=== PATIENT | male | born 2000 | race Two or more races ===

== ENCOUNTER 2022-04-28 14:30 | Emergency (ER) | payer MEDICAID, OTHER ==
[~2022-04-28] VITALS: Ht 180.3 cm; Wt 100.0 kg
[2022-04-28 14:57] VITALS: BP 135/66
[2022-04-28] MEDS ORDERED: PROM1SOL4 PO (17:04)
[2022-04-28] MEDS ORDERED: AZIT500T66 PO (17:04)
== END 2022-04-28 17:13 | disposition home or self-care (01) ==
LOC: ER 14:37
DX: J20.9 Acute bronchitis, unspecified (principal)
CPT/HCPCS: 71045

== ENCOUNTER 2022-08-18 07:03 | Emergency (ER) | payer MEDICAID ==
[~2022-08-18] VITALS: Ht 177.8 cm; Wt 105.4 kg
[~2022-08-18 07:03] MED LIST: AZIT500T66 PO; PROM1SOL4 PO
[2022-08-18 07:50] VITALS: BP 125/67
[2022-08-18] MEDS ORDERED: cefTRIAXone SOD 1,000 MG VL IM ONE (08:15)
[2022-08-18] MEDS ORDERED: IBUPROFEN 800 MG TAB PO ONE (08:15)
[2022-08-18] MEDS ORDERED: CEPH500C PO (08:24)
[2022-08-18] MEDS ORDERED: IBUP800T27 PO (08:24)
[2022-08-18] MEDS ORDERED: BACDST PO (08:24)
== END 2022-08-18 08:34 | disposition home or self-care (01) ==
LOC: ER 07:03
DX: S70.362A Insect bite (nonvenomous), left thigh, initial encounter (principal); W57.XXXA Bitten or stung by nonvenomous insect and other nonvenomous arthropods, initial encounter; Y93.89 Activity, other specified; Y92.89 Other specified places as the place of occurrence of the external cause; Y99.8 Other external cause status
CPT/HCPCS: 96372; 99283; J0696

== ENCOUNTER 2023-11-28 07:48 | Emergency (ER) | payer MEDICAID ==
[~2023-11-28] VITALS: Ht 180.3 cm; Wt 92.2 kg
[~2023-11-28 07:48] MED LIST changes: +BACDST PO; +CEPH500C PO; +IBUP-1456 PO
[2023-11-28 08:11] VITALS: BP 160/88; PULSE 87; RESP 16; TEMP 97.9; O2SAT 99
[2023-11-28] MEDS ORDERED: FLUO0.054 TOP (08:30)
== END 2023-11-28 08:36 | disposition home or self-care (01) ==
LOC: ER 07:48
DX: L20.9 Atopic dermatitis, unspecified (principal); Z79.1 Long term (current) use of non-steroidal anti-inflammatories (NSAID); Z79.52 Long term (current) use of systemic steroids; Z79.899 Other long term (current) drug therapy

== ENCOUNTER 2025-01-11 17:27 | Emergency (ER) | payer MEDICAID ==
[~2025-01-11] VITALS: Ht 180.3 cm; Wt 92.6 kg
[~2025-01-11 17:27] MED LIST changes: +FLUO0.054 TOP
[2025-01-11 17:28] VITALS: BP 124/67; PULSE 96; RESP 15; TEMP 98.1; O2SAT 99
[2025-01-11 20:37] LABS: COVID19 ANTIGEN SOFIA FIA NEGATIVE (NEGATIVE)
[2025-01-11] MEDS ORDERED: METH4PAK PO (21:26)
[2025-01-11] MEDS ORDERED: AZIT-43 PO (21:26)
--- NOTE | 2025-01-11 21:27 | ED.PDOC ---
Eye-HPI HPI Comments C/O BODY ACHES, SORETHROAT, NAUSEA, FEVER AND RIGHT EYE REDNESS X 3 DAYS C/O POOR APPETITE Chief Complaint: Flu like Time Seen by MD: 17:59 Primary Care Provider: NONE Reviewed Notes: Nurses Notes, Medications, Allergies Allergies: Coded Allergies: NO KNOWN ALLERGIES (Unverified , 04/28/22) Home Meds Active Scripts Fluocinonide (Fluocinonide) 0.05 % Oin, 1 APPLIC TOP BID for 7 Days, #60 GRAMS 1 Refill Prov:UNIQUE FALLON [employer] 11/28/23 Ibuprofen (Ibuprofen) 800 Mg Tab, 1 TAB PO TID, #30 TAB Prov:SAAD ALEXANDER 08/18/22 Cephalexin Monohydrate (Cephalexin) 500 Mg Cap, 1 CAP PO QID, #40 CAP Prov:SAAD ALEXANDER 08/18/22 Sulfamethoxazole W/Trimethopri (Bactrim Ds Tablet) 1 Tab Tb, 1 TAB PO BID, #20 TAB Prov:SAAD ALEXANDER 08/18/22 Promethazine-Dm (Promethazine Dm 6.25-15 mg/5Ml) 1 Marie Marie, 5 ML PO TID, #150 ML Prov:SAAD ALEXANDER 04/28/22 Azithromycin (Azithromycin) 500 Mg Tab, 1 TAB PO DAILY, #5 TAB Prov:SAAD ALEXANDER 04/28/22 Discontinued Scripts Methylprednisolone (Medrol Dosepak) 4 Mg Harris, 4 MG PO UD for 6 Days, #21 TAB UAD Prov:CARMENCITA SOLANO 01/11/25 Azithromycin (Azithromycin) 250 Mg Tab, 250 MG PO DAILY MDD 500 for 5 Days, #6 TAB 2 TABLETS ORALLY ON DAY ONE, THEN 1 TABLET ORALLY DAILY FOR 4 DAYS Prov:CARMENCITA SOLANO 01/11/25 Information Source: Patient Mode of Arrival: Ambulatory Past Medical History PAST MEDICAL HISTORY: Denies Surgical History: Denies all surgeries Family History Family History: Reviewed,noncontributory to illness Social History Smoker: Non-Smoker Alcohol: Denies ETOH Use Drugs: Denies Drug Use Lives In: Home All Other Systems: Reviewed and Negative (see hpi) Physical Exam General Appearance: No Apparent Distress, Normal HEENT: Pharyngeal Erythema, TMs Normal Neck: Full Range of Motion, Non-Tender Respiratory: No Respiratory Distress, Normal Breath Sounds, Rhonchi Cardiovascular: No Edema, No JVD, No Murmur, No Gallop, Normal Peripheral Pulses, Regular Rate/Rhythm Breast Exam: Deferred Gastrointestinal: No Organomegaly, Non Tender, No Pulsatile Mass, Normal Bowel Sounds, Soft Genitalia: Deferred Pelvic: Deferred Rectal: Deferred Extremities: Normal capillary refill, Normal range of motion, No pedal edema Musculoskeletal : Apperance: Normal Neurologic: Alert, No Motor Deficits, Normal Affect, Normal Mood, No Sensory Deficits Cerebellar Function: Normal Reflexes: NOT DONE Skin: Dry, Normal Color, Warm Lymphatic: No Adenopathy Was a procedure done? Was a procedure done?: No EENT DIFF Eye: Allergic, Bacterial, Chlamydial, Corneal Ulceration, Foreign Body- Conjunctiva, Foreign Body-Intraocular Sore Throat: Siddharth's Angina, Peritonsillar Abscess, Peritonsillar Cellulitis, URI X-Ray, Labs, Meds, VS Vital Signs Date Time Temp Pulse Resp B/P (MAP) Pulse Ox O2 Delivery O2 Flow Rate FiO2 01/11/25 17:28 98.1 96 15 124/67 99 98.1 Lab Test 01/11/25 19:47 Range/Units Influenza Type A Antigen Negative Negative Influenza Type B Antigen Negative Negative SARS-CoV-2 Antigen (Rapid) Negative NEGATIVE Time of 1ST Reevaluation: 17:59 Reevaluation 1ST: Unchanged Time of 2ND Reevaluation: 21:26 Reevaluation 2ND: Improved Patient Education/Counseling: Diagnosis, Treatment, Prognosis, Need For Follow Up Family Education/Counseling: No Family Present SEPSIS Sepsis Screen Date sepsis recognized/suspect: Jan 11, 2025 Time Sepsis recognized/suspect: 1729 Recent Procedure: No On Antibiotic Therapy: No Respiratory Rate >20: No Heart Rate >90: No Temp<36 C (96.8 F) or >38.3 C: No SBP <90 or MAP <65 mmHG: No New Acute Mental Status Change: No Is the patient on CPAP, BIPAP,: No Vital Signs Date Time Temp Pulse Resp B/P (MAP) Pulse Ox O2 Delivery O2 Flow Rate FiO2 01/11/25 17:28 98.1 96 15 124/67 99 98.1 Departure 1 Departure Time of Disposition: 21:24 Impression: Primary Impression: URI (upper respiratory infection) Qualified Codes: J06.9 - Acute upper respiratory infection, unspecified Disposition: HOME / SELF CARE / HOMELESS Condition: Stable Additional Instructions: Discharge Note: Drink plenty of fluids. Follow up with your primary Dr. If your condition becomes worse call and follow up with your primary Dr. for instructions or return to the ER if needed. Thank you for visiting [facility]. Discharged With: Self Critical Care Note Critical Care Time?: No Stability Stability form required: CARMENCITA Rosales Jan 11, 2025 21:27
== END 2025-01-11 21:42 | disposition home or self-care (01) ==
LOC: ER 17:27
DX: J06.9 Acute upper respiratory infection, unspecified (principal); Z20.822 Contact with and (suspected) exposure to COVID-19
CPT/HCPCS: 36415; 87426; 87804